=== PATIENT | female | born 1950 | race Caucasian/White ===

== ENCOUNTER 2017-11-10 14:51 | Emergency (ER) | payer MEDICARE, BC ==
[2017-11-10 15:25] VITALS: BP 136/77
--- NOTE | 2017-11-10 15:43 | ED ---
Throat Pain/Nasal Congestion - HPI Summary HPI Summary: 66 yr old with left ear pain, onset yesterday, she was treated with keflex for a sinus infection and finished the anitibiotics on November 04. She still has post nasal drip and sinus pressure and complains of left ear pain. Pain moderate. - History of Current Complaint Chief Complaint: UCEar Time Seen by Provider: 11/10/17 15:25 - Allergies/Home Medications Allergies/Adverse Reactions: Allergies Allergy/AdvReac Type Severity Reaction Status Date / Time levofloxacin [From Levaquin] Allergy See Comment Verified 11/10/17 15:10 Home Medications: Home Medications Apixaban* [Eliquis*] 2.5 mg PO BID 11/10/17 [History Confirmed 11/10/17] Levothyroxine TAB* [Synthroid TAB*] 100 mcg PO DAILY 11/10/17 [History Confirmed 11/10/17] Meloxicam 7.5 mg PO DAILY PRN 11/10/17 [History Confirmed 11/10/17] Tofacitinib Citrate [Xeljanz Xr] 11 mg PO DAILY 11/10/17 [History Confirmed ] predniSONE TAB* [Deltasone TAB*] 10 mg PO DAILY 11/10/17 [History Confirmed ] PMH/Surg Hx/FS Hx/Imm Hx Endocrine/Hematology History: Reports: Hx Thyroid Disease Respiratory History: Denies: Hx Pneumonia Musculoskeletal History: Reports: Hx Rheumatoid Arthritis, Hx Osteoporosis - Cancer History Cancer Type, Location and Year: RA Hx Chemotherapy: No Hx Radiation Therapy: No - Surgical History Surgery Procedure, Year, and Place: ANKLE SURG, FOOT SURG, CYST REMOVED FROM BREAST, TUBAL,L SHOULDER SURG, R knee replacement, R HIP SX Infectious Disease History: No Infectious Disease History: Denies: Traveled Outside the [place] in Last 30 Days - Family History Known Family History: Positive: Hypertension - Social History Alcohol Use: Occasionally Substance Use Type: Reports: None Smoking Status (MU): Former Smoker Type: Cigarettes Amount Used/How Often: 1 PPD Length of Time of Smoking/Using Tobacco: 25 Years Have You Smoked in the Last Year: No Review of Systems Negative: Fever, Chills Positive: Ear Ache, Nasal Discharge All Other Systems Reviewed And Are Negative: Yes Physical Exam Triage Information Reviewed: Yes Vital Signs On Initial Exam: Initial Vitals Temp Pulse Resp BP Pulse Ox 98 F 82 16 136/77 97 11/10/17 15:19 11/10/17 15:19 11/10/17 15:19 11/10/17 15:19 11/10/17 15:19 Vital Signs Reviewed: Yes Appearance: Positive: Well-Appearing, No Pain Distress Skin: Positive: Warm, Skin Color Reflects Adequate Perfusion Head/Face: Positive: Normal Head/Face Inspection Eyes: Positive: EOMI ENT: Positive: Nasal congestion, TM red - left TM redness, Sinus tenderness, Uvula midline. Negative: Muffled voice, Hoarse voice Neck: Positive: Nontender Respiratory/Lung Sounds: Positive: Clear to Auscultation, Breath Sounds Present Cardiovascular: Positive: RRR. Negative: Murmur Abdomen Description: Positive: Nontender Musculoskeletal: Positive: Other - ambulates with can from recent hip surgery. Neurological: Positive: Sensory/Motor Intact, Alert, Oriented to Person Place, Time, CN Intact II-III Psychiatric: Positive: Normal - Yves Coma Scale Best Eye Response: 4 - Spontaneous Best Motor Response: 6 - Obeys Commands Best Verbal Response: 5 - Oriented Coma Scale Total: 15 Diagnostics - Vital Signs Vital Signs Temp Pulse Resp BP Pulse Ox 11/10/17 15:19 98 F 82 16 136/77 97 - Laboratory Lab Statement: Any lab studies that have been ordered have been reviewed, and results considered in the medical decision making process. EENT Course/Dx - Course Course Of Treatment: 66 yr old with left OM. Plan Rx with cefdinir. - Diagnoses Provider Diagnoses: Otitis media Discharge - Sign-Out/Discharge Documenting (check all that apply): Discharge/Admit/Transfer - Discharge Plan Condition: Good Disposition: HOME Prescriptions: Cefdinir [Cefdinir 300 MG CAP] 300 mg PO BID #20 capsule Patient Education Materials: Ear Infection (ED) Referrals: Mundo Bain MD [Primary Care Provider] - 7 Days - Billing Disposition and Condition Condition: GOOD Disposition: HOME
== END 2017-11-10 15:43 | disposition home or self-care (01) ==
LOC: UCCORT 14:51
DX: H66.92 Otitis media, unspecified, left ear (principal); Z88.1 Allergy status to other antibiotic agents; E07.9 Disorder of thyroid, unspecified; M06.9 Rheumatoid arthritis, unspecified
CPT/HCPCS: 99212; G0463

== ENCOUNTER 2018-06-11 10:52 | Emergency (ER) | payer MEDICARE, BC ==
[2018-06-11 11:10] VITALS: BP 165/99
--- NOTE | 2018-06-11 11:51 | UC ---
UC General HPI - HPI Summary HPI Summary: 6 DAYS HX OF WORSENING SINUS PAIN, PRESSURE, CONGESTION AND DRAINAGE. HX RECURRENT SINUSITIS DESPITE SINUS SURGERY. IMMUNE SUPPRESSION FROM RA TX WELL. - History of Current Complaint Chief Complaint: UCGeneralIllness Stated Complaint: SINUS COMPLAINT Time Seen by Provider: 06/11/18 11:44 Hx Obtained From: Patient Onset/Duration: Gradual Onset Timing: Constant Pain Intensity: 7 Associated Signs & Symptoms: Negative: Fever - Allergy/Home Medications Allergies/Adverse Reactions: Allergies Allergy/AdvReac Type Severity Reaction Status Date / Time levofloxacin [From Levaquin] Allergy See Comment Verified 06/11/18 11:10 PMH/Surg Hx/FS Hx/Imm Hx - Additional Past Medical History Additional PMH: ALLERGIES, RA Endocrine History: Thyroid Disease GI/ History: Gastroesophageal Reflux - Surgical History Surgical History: Yes Surgery Procedure, Year, and Place: ANKLE SURG, FOOT SURG, CYST REMOVED FROM BREAST, TUBAL,L SHOULDER SURG, R knee replacement, R HIP SX - Family History Known Family History: Positive: Hypertension - Social History Alcohol Use: Occasionally Substance Use Type: None Smoking Status (MU): Former Smoker Type: Cigarettes Amount Used/How Often: 1 PPD Length of Time of Smoking/Using Tobacco: 25 Years Have You Smoked in the Last Year: No When Did the Patient Quit Smoking/Using Tobacco: 1993 - Immunization History Most Recent Influenza Vaccination: Not the 2015/2016 Season Most Recent Tetanus Shot: 01/23/14 Most Recent Pneumonia Vaccination: January 2016 Vaccination Up to Date: Yes Review of Systems All Other Systems Reviewed And Are Negative: Yes Constitutional: Positive: Negative Skin: Positive: Negative Eyes: Positive: Negative ENT: Positive: Nasal Discharge, Sinus Congestion, Sinus Pain/Tenderness Respiratory: Positive: Negative Cardiovascular: Positive: Negative Gastrointestinal: Positive: Negative Genitourinary: Positive: Negative Motor: Positive: Negative Neurovascular: Positive: Negative Musculoskeletal: Positive: Arthralgia - RA Neurological: Positive: Negative Psychological: Positive: Negative Is Patient Immunocompromised?: Yes Physical Exam Triage Information Reviewed: Yes Appearance: Well-Appearing Vital Signs: Initial Vital Signs Temp 97.4 F 06/11/18 11:07 Pulse 81 06/11/18 11:07 Resp 16 06/11/18 11:07 BP 165/99 06/11/18 11:07 Pulse Ox 95 06/11/18 11:07 Vital Signs Reviewed: Yes Eyes: Positive: Conjunctiva Clear ENT: Positive: Pharynx normal, Nasal congestion, TMs normal, Sinus tenderness Neck: Positive: Supple, Nontender, No Lymphadenopathy Respiratory: Positive: Lungs clear, Normal breath sounds Cardiovascular: Positive: RRR, No Murmur Abdomen Description: Positive: Nontender, No Organomegaly, Soft Bowel Sounds: Positive: Present Musculoskeletal: Positive: ROM Intact Neurological: Positive: Alert Psychological: Positive: Age Appropriate Behavior Skin Exam: Normal Course/Dx - Course Course Of Treatment: BP DISCUSSED WITH PT. PT STATES BP ALWAYS GOES UP WITH ILLNESS AND THEN GOES BACK TO NORMAL. WILL HAVE RECHECK ON F/U APPT. - Differential Dx - Multi-Symptom Differential Diagnoses: Other - URI, SINUSITIS - Diagnoses Provider Diagnosis: Sinusitis Discharge - Sign-Out/Discharge Documenting (check all that apply): Patient Departure All imaging exams completed and their final reports reviewed: No Studies - Discharge Plan Condition: Stable Disposition: HOME Prescriptions: DOXYcycline CAP(*) [DOXYcycline 100MG CAP(*)] 100 mg PO BID 10 Days #20 cap methylPREDNISolone [Medrol Dosepak 4 MG*] 0 mg PO .SEE KANE INSTRUCTION #1 tab Patient Education Materials: Sinusitis (ED) Referrals: Mundo Bain MD [Primary Care Provider] - 7 Days - Billing Disposition and Condition Condition: STABLE Disposition: Home
== END 2018-06-11 11:58 | disposition home or self-care (01) ==
LOC: UCCORT 10:52
DX: J02.9 Acute pharyngitis, unspecified (principal); L01.00 Impetigo, unspecified; K05.10 Chronic gingivitis, plaque induced
CPT/HCPCS: 99212; G0463

== ENCOUNTER 2018-10-21 16:33 | Emergency (ER) | payer MEDICARE, BC ==
[2018-10-21 16:54] VITALS: BP 132/86
--- NOTE | 2018-10-21 17:24 | UC ---
Skin Complaint HPI - HPI Summary HPI Summary: 67-year-old woman comes in with a chief complaint of shingles on the right side of her chest. Patient started with symptoms about 2 weeks ago. She was seen in [facility] on October 10, 2018. There she was treated with valacyclovir 1 g by mouth 3 times a day for 7 days, Keflex 500 mg by mouth twice a day, and a prednisone taper. She is out of all those medications. The rash continues to be painful and has serous drainage. No fevers. - History of Current Complaint Chief Complaint: UCSkin Time Seen by Provider: 10/21/18 16:54 Stated Complaint: DIAGNOSED WITH SHINGLES/RECHECK Pain Intensity: 8 - Allergy/Home Medications Allergies/Adverse Reactions: Allergies Allergy/AdvReac Type Severity Reaction Status Date / Time levofloxacin [From Levaquin] Allergy See Comment Verified 10/21/18 16:54 Home Medications: Home Medications Aspirin 81 mg CHEW TAB* [Aspirin Low Dose TAB*] 81 mg PO DAILY 10/21/18 [ History Confirmed 10/21/18] PMH/Surg Hx/FS Hx/Imm Hx Previously Healthy: Yes - RA Endocrine History: Hypothyroidism Respiratory History: Asthma GI/ History: Gastroesophageal Reflux - Surgical History Surgical History: Yes Surgery Procedure, Year, and Place: ANKLE SURG, FOOT SURG, CYST REMOVED FROM BREAST, TUBAL,L SHOULDER SURG, R knee replacement, R HIP SX - Family History Known Family History: Positive: Hypertension - Social History Alcohol Use: Occasionally Substance Use Type: None Smoking Status (MU): Former Smoker Type: Cigarettes Amount Used/How Often: 1 PPD Length of Time of Smoking/Using Tobacco: 25 Years Have You Smoked in the Last Year: No When Did the Patient Quit Smoking/Using Tobacco: 1993 - Immunization History Most Recent Influenza Vaccination: Not the 2016/2017 Season Most Recent Tetanus Shot: 01/23/14 Most Recent Pneumonia Vaccination: January 2016 Vaccination Up to Date: Yes Review of Systems All Other Systems Reviewed And Are Negative: Yes Constitutional: Positive: Negative Skin: Positive: Other - SEE HPI Eyes: Positive: Negative ENT: Positive: Negative Respiratory: Positive: Negative Cardiovascular: Positive: Negative Gastrointestinal: Positive: Negative Motor: Positive: Negative Neurovascular: Positive: Negative Musculoskeletal: Positive: Negative Neurological: Positive: Negative Psychological: Positive: Negative Is Patient Immunocompromised?: Yes - ON XELJANZ FOR RA Physical Exam Triage Information Reviewed: Yes Appearance: Well-Appearing, Well-Nourished, Pain Distress - MILD PAIN DISTREE, WORSE WITH ROM Vital Signs: Initial Vital Signs Temp 97.3 F 10/21/18 16:45 Pulse 88 10/21/18 16:45 Resp 22 10/21/18 16:45 BP 132/86 10/21/18 16:45 Pulse Ox 98 10/21/18 16:45 Vital Signs Reviewed: Yes Eye Exam: Normal Eyes: Positive: Conjunctiva Clear Neck: Positive: Supple Respiratory: Positive: No respiratory distress Musculoskeletal: Positive: Strength Intact, ROM Intact Neurological: Positive: Alert, Muscle Tone Normal Psychological Exam: Normal Psychological: Positive: Age Appropriate Behavior Skin: Positive: Other - RIGHT CHEST THORACIC DERMATOMAL DISTRIBUTION ERYTHEMATOUS RASH; SEROUS DRAINAGE WITH VESICLES AND SCABBED OVER AREAS. Course/Dx - Course Course Of Treatment: Because the patient is on Xeljanx for her rheumatoid arthritis and she potentially immunocompromised I'm going to extend the course of valacyclovir which in immunocompromised patients new continues attend a 14 day course. Patient's had a seven-day course. Also going to extend the Keflex to avoid bacterial infection. We'll start gabapentin 300 mg first day 300 twice a day second day 300 3 times a day after that to help with the pain. Patient to follow-up with her primary care doctor this week. We discussed disseminated zoster and if the patient got a fever she got confused did not feel well she needed to go to the emergency department. - Diagnoses Provider Diagnosis: Shingles Discharge - Sign-Out/Discharge Documenting (check all that apply): Patient Departure All imaging exams completed and their final reports reviewed: No Studies - Discharge Plan Condition: Stable Disposition: HOME Prescriptions: Cephalexin CAP* [Keflex CAP*] 500 mg PO TID #21 cap Gabapentin CAP(*) [Neurontin 300 CAP(*)] 300 mg PO TID #30 cap Valacyclovir HCl [Valacyclovir] 1 gm PO TID #21 tab Patient Education Materials: Shingles (ED) Referrals: Mundo Bain MD [Primary Care Provider] - Additional Instructions: FOLLOW UP WITH YOUR DOCTOR THIS WEEK. GO TO THE EMERGENCY DEPARTMENT IF YOUR CONDITION WORSENS; FEVER, YOU FEEL ILL, CONFUSION OR ANY QUESTIONS OR CONCERNS. - Billing Disposition and Condition Condition: STABLE Disposition: Home
== END 2018-10-21 17:39 | disposition home or self-care (01) ==
LOC: UCCORT 16:33
DX: Z51.89 Encounter for other specified aftercare (principal); B02.9 Zoster without complications; Z88.1 Allergy status to other antibiotic agents; Z87.891 Personal history of nicotine dependence
CPT/HCPCS: 99212; G0463